=== PATIENT | male | born 1960 | race Caucasian/White ===

== ENCOUNTER 2017-08-30 16:12 | Emergency (ER) | payer OTHER ==
[~2017-08-30] VITALS: Ht 175.3 cm; Wt 73.9 kg
[2017-08-30 16:48] VITALS: Ht 175.3 cm; Wt 73.9 kg
[2017-08-30 21:22] VITALS: BP 111/72
== END 2017-08-30 21:22 | disposition home or self-care (01) ==
LOC: ED 16:12
DX: B34.9 Viral infection, unspecified (principal)
CPT/HCPCS: 87804; J1885